=== PATIENT | female | born 1985 | race Asian ===

== ENCOUNTER 2016-06-21 08:22 | Emergency (ER) | payer OTHER ==
[~2016-06-21] VITALS: Ht 167.6 cm; Wt 79.8 kg
[2016-06-21 08:40] VITALS: BP 138/92; TEMP 98.6
== END 2016-06-21 08:50 | disposition home or self-care (01) ==
LOC: ED 08:22
DX: O26.859 Spotting complicating pregnancy, unspecified trimester (principal); Z37.9 Outcome of delivery, unspecified
CPT/HCPCS: 99282

== ENCOUNTER 2018-02-16 08:13 | Emergency (ER) | payer OTHER ==
[~2018-02-16] VITALS: Ht 167.6 cm; Wt 78.0 kg
[2018-02-16 08:17] VITALS: TEMP 97.9
[2018-02-16 10:30] VITALS: BP 138/78
== END 2018-02-16 10:30 | disposition home or self-care (01) ==
LOC: ED 08:13
DX: S62.625A Displaced fracture of middle phalanx of left ring finger, initial encounter for closed fracture (principal); W23.0XXA Caught, crushed, jammed, or pinched between moving objects, initial encounter; Y92.89 Other specified places as the place of occurrence of the external cause
CPT/HCPCS: 36415; 96374; 96375; 96376; 99284; J2175; J2550

== ENCOUNTER 2018-05-21 11:47 | Emergency (ER) | payer OTHER ==
[~2018-05-21] VITALS: Ht 167.6 cm; Wt 78.0 kg
[2018-05-21 12:27] VITALS: BP 138/96; TEMP 98.6
== END 2018-05-21 12:30 | disposition home or self-care (01) ==
LOC: ED 11:47
DX: J01.80 Other acute sinusitis (principal); J30.89 Other allergic rhinitis
CPT/HCPCS: 96372; 99282; J1020

== ENCOUNTER 2018-07-19 15:17 | Emergency (ER) | payer OTHER ==
[~2018-07-19] VITALS: Ht 167.6 cm; Wt 78.0 kg
[2018-07-19 16:15] LABS: PLATELET COUNT 301 K/uL (152-353)
[2018-07-19 16:42] LABS: POTASSIUM 2.9 mmol/L (3.6-5.2)
[2018-07-19 17:20] VITALS: BP 125/81; TEMP 98.5
== END 2018-07-19 17:25 | disposition home or self-care (01) ==
LOC: ED 15:17
PROVIDERS: Emergency Medicine
DX: I10 Essential (primary) hypertension (principal); R51 Headache
CPT/HCPCS: 36415; 80053; 81025; 85027; 93005; 99283